=== PATIENT | female | born 1980 | race Two or more races ===

== ENCOUNTER 2024-08-03 11:39 | Emergency (ER) | payer OTHER ==
[~2024-08-03] VITALS: Ht 172.7 cm; Wt 89.8 kg
[~2024-08-03 11:39] MED LIST: ANTICONCEPTIVO; CLONAZEPAM1 MG PO; CLONAZEPAM2 MG PO; FERRLECIT IV; KETO10TA2 PO; Mylicon 125MG PO; NAPR500T14 PO; OXYC1TAB9 PO; PERCOCET 5-3251 EACH PO; PERCOCET 5/3251 TAB PO; ZOLOFT25 MG PO
[2024-08-03] MEDS ORDERED: KETOROLAC TROMETHAMINE 60 MG VIAL IM ONE (12:30)
[2024-08-03] MEDS ORDERED: CEFTRIAXONE SODIUM 1,000 MG VIAL IM ONE (12:30)
[2024-08-03 13:08] LABS: HEMATOCRIT 38.6 % (36.0-45.00); HEMOGLOBIN 12.7 g/dL (12.0-15.00); MEAN CELL VOLUME 89.5 fL (80.00-100.00); MEAN CORPUSCULAR HEMOGLOBIN 29.6 pg (27.00-32.0); MEAN CORPUSCULAR HGB CONC 33.1 g/dl (32.0-36.0); PLATELET COUNT 284 K/uL (150-450); RED BLOOD COUNT 4.31 M/uL (4.00-6.00); RED CELL DISTRIBUTION WIDTH 12.1 % (11.5-14.5)
[2024-08-03 14:08] LABS: URINE APPEARANCE Clear; URINE BILIRRUBIN Negative (NEGATIVE); URINE BLOOD Negative; URINE COLOR Yellow; URINE GLUCOSE Negative (NEGATIVE); URINE KETONE Negative (NEGATIVE); URINE LEUKOCYTE Large; URINE NITRATE Negative; URINE PROTEIN Negative (NEGATIVE); URINE UROBILINOGEN 0.2 E.U./dl
[2024-08-03 14:11] LABS: URINE BACTERIA 843.1 uL (0.0-1933); URINE EPITHELIAL CELLS 36.5 uL (0.0-38.8); URINE RBC 5.4 uL (0.0-20.8); URINE WBC 83.4 uL (0.0-23.2)
[2024-08-03 14:16] LABS: URINE CAST 0.14 uL (0.0-1.40)
[2024-08-03] MEDS ORDERED: PEPCID AC20 MG PO (14:23)
[2024-08-03] MEDS ORDERED: BACTRIM DS TAB1 EACH PO (14:23)
[2024-08-03] MEDS ORDERED: VAGISIL CREAM28 GM VAG (14:23)
[2024-08-03] MEDS ORDERED: MONISTAT 745 GM VAG (14:27)
== END 2024-08-03 14:30 | disposition home or self-care (01) ==
LOC: ER 11:40
PROVIDERS: General Practice
DX: N89.8 Other specified noninflammatory disorders of vagina (principal); N39.0 Urinary tract infection, site not specified; R53.81 Other malaise; R10.9 Unspecified abdominal pain; Z88.8 Allergy status to other drugs, medicaments and biological substances